=== PATIENT | male | born 1965 | race Caucasian/White ===

== ENCOUNTER 2024-07-01 08:41 | Day surgery (SDC) | payer MEDICARE ==
[2024-07-01] MEDS ORDERED: LIDOCAINE HCL 2% 100 MG/5 ML IJ ONE (08:42)
[2024-07-01] MEDS ORDERED: dexAMETHasone sodium phosphate IJ ONE (08:42)
[2024-07-01] MEDS ORDERED: propofoL IV ONE (10:08)
--- NOTE | 2024-07-01 11:57 | XRAY ---
Indication: Right C2-C4 MBB. Intraoperative fluoroscopy provided for 12 seconds. 3 digital spot image submitted for interpretation demonstrates posterior needle tips projecting over expected right C2-C4 nerve roots. Correlate with intraoperative findings/report.
--- NOTE | 2024-07-01 12:58 | XRAY ---
12 seconds of fluoroscopy was used in surgery for a right C2-C4 MBB.
== END 2024-07-01 10:45 | disposition home or self-care (01) ==
LOC: SDC-PAIN 08:41
PROVIDERS: ATTEND Psychiatry & Neurology Pain Medicine
DX: M47.812 Spondylosis without myelopathy or radiculopathy, cervical region (principal); R73.03 Prediabetes
CPT/HCPCS: 64490; 64491; 72040; 82947; J1100; J2704

== ENCOUNTER 2024-12-16 08:02 | Day surgery (SDC) | payer MEDICARE ==
[2024-12-16] MEDS ORDERED: methylPREDNISolone acetate IM ONE (08:03)
[2024-12-16] MEDS ORDERED: BUPIVACAINE 0.5% VIAL IJ ONE (08:03)
[2024-12-16] MEDS ORDERED: propofoL IV ONE (09:34)
[2024-12-16] MEDS ORDERED: Lactated Ringers 1,000 ML IV ONE (09:51)
--- NOTE | 2024-12-16 19:06 | XRAY ---
Indication: Bilateral L4-S1 MBB. Intraoperative fluoroscopy provided for 14 seconds. Single digital spot image submitted for interpretation demonstrates posterior needle tips projecting over expected left and right L4-S1 nerve roots. Correlate with intraoperative findings/report.
--- NOTE | 2024-12-16 19:37 | XRAY ---
14 seconds of fluoroscopy was used in surgery for a bilateral L4-S1 MBB.
== END 2024-12-16 10:05 | disposition home or self-care (01) ==
LOC: SDC-PAIN 08:02
PROVIDERS: ATTEND Psychiatry & Neurology Pain Medicine
DX: M47.817 Spondylosis without myelopathy or radiculopathy, lumbosacral region (principal); R73.03 Prediabetes

== ENCOUNTER 2025-01-13 09:28 | Day surgery (SDC) | payer MEDICARE ==
[2025-01-13] MEDS ORDERED: LIDOCAINE HCL 1% 50 MG/5 ML VL IJ ONE (09:29)
[2025-01-13] MEDS ORDERED: BUPIVACAINE 0.5% VIAL IJ ONE (09:29)
[2025-01-13] MEDS ORDERED: Lactated Ringers 1,000 ML IV ONE (09:29)
[2025-01-13] MEDS ORDERED: propofoL IV ONE (11:07)
--- NOTE | 2025-01-13 13:22 | XRAY ---
Indication: Right L4-S1 RFA. Intraoperative fluoroscopy provided for 12 seconds. 3 digital spot image submitted for interpretation demonstrates posterior needle tips projecting over expected right L4-S1 nerve roots. Correlate with intraoperative findings/report.
--- NOTE | 2025-01-13 13:54 | XRAY ---
12 seconds of fluoroscopy were used in surgery for a right L4-S1 RFA.
== END 2025-01-13 11:44 | disposition home or self-care (01) ==
LOC: SDC-PAIN 09:28
PROVIDERS: ATTEND Psychiatry & Neurology Pain Medicine
DX: M47.817 Spondylosis without myelopathy or radiculopathy, lumbosacral region (principal); R73.03 Prediabetes

== ENCOUNTER 2025-02-03 09:12 | Day surgery (SDC) | payer MEDICARE ==
[2025-02-03] MEDS ORDERED: LIDOCAINE HCL 1% 50 MG/5 ML VL IJ ONE (09:13)
[2025-02-03] MEDS ORDERED: BUPIVACAINE 0.5% VIAL IJ ONE (09:13)
[2025-02-03] MEDS ORDERED: methylPREDNISolone acetate IM ONE (09:13)
--- NOTE | 2025-02-03 11:59 | XRAY ---
Indication: Pain. Two-dimensional sonogram and color Doppler imaging major venous vessels left leg performed. Comparison: None No thrombus seen in the examined deep venous vessels left leg including greater saphenous vein. Veins demonstrate normal compressibility. Venous waveforms are normal with and without augmentation. Targeted ultrasound over calf demonstrates subcutaneous venous varicosities up to 7 mm with intraluminal echogenicities favoring thrombophlebitis. Impression: Sonographic findings favoring calf thrombophlebitis. Left leg negative for DVT.
[2025-02-03] MEDS ORDERED: propofoL IV ONE (12:44)
[2025-02-03] MEDS ORDERED: Lactated Ringers 1,000 ML IV ONE ×2 (13:20→14:01)
--- NOTE | 2025-02-03 13:58 | XRAY ---
Indication: Left L4-S1 RFA. Intraoperative fluoroscopy provided for 10 seconds. 4 digital spot image submitted for interpretation demonstrates posterior needle tips projecting over expected left L4-S1 nerve roots. Correlate with intraoperative findings/report.
--- NOTE | 2025-02-03 14:01 | XRAY ---
10 seconds of fluoroscopy was used in surgery for a left L4-S1 RFA.
== END 2025-02-03 13:20 | disposition home or self-care (01) ==
LOC: SDC-PAIN 09:12
PROVIDERS: ATTEND Psychiatry & Neurology Pain Medicine
DX: M47.817 Spondylosis without myelopathy or radiculopathy, lumbosacral region (principal); R73.03 Prediabetes; M79.605 Pain in left leg